=== PATIENT | male | born 1980 ===

== ENCOUNTER 2018-08-14 10:27 | Emergency (ER) | payer MEDICAID ==
[2018-08-14 10:33] VITALS: BP 146/97
[2018-08-14] MEDS ORDERED: IBUPROFEN PO ONE (11:23)
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
--- NOTE | 2018-08-14 11:59 | XRay Report ---
RIGHT HAND RADIOGRAPHS INDICATION: Blunt trauma with pain. COMPARISON: None similar at this institution. FINDINGS: AP, lateral and oblique right hand radiographs demonstrate a nondisplaced fifth metacarpal mid shaft fracture with slight dorsal angulation/apex and diffuse overlying soft tissue swelling. No joint involvement. Normal remainder exam. CONCLUSION: Acute right fifth metacarpal shaft fracture and overlying soft tissue swelling, as detailed above. Please correlate. Thank you for the opportunity to participate in this patient's care.
== END 2018-08-14 12:10 | disposition home or self-care (01) ==
LOC: ED 10:27
DX: S62.356A Nondisplaced fracture of shaft of fifth metacarpal bone, right hand, initial encounter for closed fracture (principal); F12.10 Cannabis abuse, uncomplicated; Y04.0XXA Assault by unarmed brawl or fight, initial encounter; Y93.89 Activity, other specified; Y92.89 Other specified places as the place of occurrence of the external cause; Y99.8 Other external cause status

== ENCOUNTER 2020-05-13 23:49 | Emergency (ER) | payer MEDICAID ==
[2020-05-14 01:21] VITALS: BP 133/87
[2020-05-14] MEDS ORDERED: methylPREDNISolone Sod Succinate 125 MG/2 ML INJ IM ONE (02:43)
[2020-05-14] MEDS ORDERED: FAMOTIDINE 20 MG TAB PO ONE (02:43)
[2020-05-14] MEDS ORDERED: KETOROLAC 60 MG/2 ML INJ IM ONE (02:43)
[2020-05-14] MEDS ORDERED: HYDROcodone/ACETAMINOPHEN 5-325 MG TAB PO ONE (02:43)
[2020-05-14] MEDS ORDERED: ONDANSETRON 4 MG ODT TAB PO ONE (02:44)
--- NOTE | 2020-05-14 03:10 | Emergency Department Report ---
ED Extremity Problem HPI - General Chief complaint: Extremity Injury, Lower Stated complaint: GOUT Source: patient Mode of arrival: Ambulatory Limitations: No Limitations - History of Present Illness Initial comments: Patient is a 39-year-old male with a history of chronic gouty arthropathy presents to the ED with complaint of acute onset persistent severe right first MTP joint pain with swelling and severe right great toe pain for the last 12 hours. Patient admits to having been drinking alcohol more frequently as well as eating seafood and red meat. Patient states that he has no medications for pain at home for his chronic gout. Patient denies fever, chills, traumatic injury, nausea, vomiting, chest pain, shortness of breath, heavy lifting, low back pain, numbness and tingling or weakness of right leg. MD Complaint: extremity pain (Right great toe pain and swelling), extremity swelling (Right great toe pain and swelling), joint swelling (Right great toe pain and swelling), joint paint (Right foot pain and swelling) -: Sudden, hour(s) (12) Location: lower extremity (Right great toe pain and right foot pain with swelling), toe (Right great toe pain and swelling) History of Same: Yes (Chronic gouty arthropathy) -: Yes arthralgia (Right great toe pain and right foot pain) Radiation: distal Severity scale (0 -10): 8 Quality: aching, sharp Consistency: constant Improves with: nothing Worsens with: weight bearing, walking, exertion, palpation Associated Symptoms: denies other symptoms, arthralgias (Right great toe pain under right foot pain). denies: chest pain, shortness of breath, fever, myalgias - Related Data Previous Rx's Medication Instructions Recorded Last Taken Type Ibuprofen [Motrin 800 MG tab] 800 mg PO Q8HR PRN #10 tablet 08/14/18 Unknown Rx traMADoL [Ultram] 50 mg PO Q6HR PRN #12 tablet 08/14/18 Unknown Rx Colchicine 0.6 mg PO Q8H PRN #30 tablet 05/14/20 Unknown Rx Indomethacin 50 mg PO Q8H PRN #30 capsule 05/14/20 Unknown Rx predniSONE [Deltasone] 60 mg PO DAILY #15 tablet 05/14/20 Unknown Rx traMADoL [Ultram] 50 mg PO Q6HR PRN #12 tablet 05/14/20 Unknown Rx Allergies Allergy/AdvReac Type Severity Reaction Status Date / Time No Known Allergies Allergy Unverified 08/14/18 10:28 ED Review of Systems ROS: Stated complaint: GOUT Other details as noted in HPI Constitutional: denies: chills, fever Eyes: denies: eye pain, eye discharge, vision change ENT: denies: ear pain, throat pain Respiratory: denies: cough, shortness of breath, wheezing Cardiovascular: denies: chest pain, palpitations Endocrine: no symptoms reported Gastrointestinal: denies: abdominal pain, nausea, diarrhea Genitourinary: denies: urgency, dysuria Musculoskeletal: joint swelling (Right great toe pain and swelling), arthralgia (Right great toe and). denies: back pain Skin: denies: rash, lesions Neurological: denies: headache, weakness, paresthesias Psychiatric: denies: anxiety, depression Hematological/Lymphatic: denies: easy bleeding, easy bruising ED Past Medical Hx - Past Medical History Previous Medical History?: Yes Hx Kidney Stones: Yes Additional medical history: GOUT, ULCER - Surgical History Past Surgical History?: Yes Additional Surgical History: LITHOTRIPSY/ ULCER BANNING - Social History Smoking Status: Never Smoker Substance Use Type: Marijuana - Medications Home Medications: Home Medications Medication Instructions Recorded Confirmed Last Taken Type Ibuprofen [Motrin 800 MG tab] 800 mg PO Q8HR PRN #10 tablet 08/14/18 Unknown Rx traMADoL [Ultram] 50 mg PO Q6HR PRN #12 tablet 08/14/18 Unknown Rx Colchicine 0.6 mg PO Q8H PRN #30 tablet 05/14/20 Unknown Rx Indomethacin 50 mg PO Q8H PRN #30 capsule 05/14/20 Unknown Rx predniSONE [Deltasone] 60 mg PO DAILY #15 tablet 05/14/20 Unknown Rx traMADoL [Ultram] 50 mg PO Q6HR PRN #12 tablet 05/14/20 Unknown Rx ED Physical Exam - General Limitations: No Limitations General appearance: alert, in no apparent distress - Head Head exam: Present: atraumatic, normocephalic, normal inspection - Eye Eye exam: Present: normal appearance, PERRL, EOMI Pupils: Present: normal accommodation - ENT ENT exam: Present: normal exam, normal orophraynx, mucous membranes moist, TM's normal bilaterally, normal external ear exam - Neck Neck exam: Present: normal inspection, full ROM - Respiratory Respiratory exam: Present: normal lung sounds bilaterally. Absent: respiratory distress, wheezes, rales, rhonchi, chest wall tenderness, accessory muscle use, decreased breath sounds, prolonged expiratory - Cardiovascular Cardiovascular Exam: Present: regular rate, normal rhythm, normal heart sounds. Absent: systolic murmur, diastolic murmur, rubs, gallop - GI/Abdominal GI/Abdominal exam: Present: soft, normal bowel sounds. Absent: tenderness, guarding, hyperactive bowel sounds - Extremities Exam Extremities exam: Present: normal inspection, full ROM, tenderness (Palpable ri ght great toe and right first MTP joint tenderness with mild swelling), normal capillary refill, joint swelling (Right great toe and right first MTP joint swelling). Absent: calf tenderness - Back Exam Back exam: Present: normal inspection, full ROM. Absent: tenderness, CVA tenderness (R), CVA tenderness (L), muscle spasm, paraspinal tenderness, vertebral tenderness - Neurological Exam Neurological exam: Present: alert, oriented X3, CN II-XII intact, normal gait, reflexes normal - Psychiatric Psychiatric exam: Present: normal affect, normal mood - Skin Skin exam: Present: warm, dry, intact, normal color. Absent: rash ED Course Vital Signs 05/14/20 05/14/20 05/14/20 01:14 03:38 03:39 Temperature 98.5 F Pulse Rate 81 Respiratory 18 20 20 Rate Blood Pressure 133/87 O2 Sat by Pulse 97 Oximetry ED Medical Decision Making - Medical Decision Making This is a 39-year-old male with a history of chronic gouty arthropathy presents to the ED with complaint of acute onset persistent severe right first MTP joint pain with swelling and severe right great toe pain for the last 12 hours. Patient admits to having been drinking alcohol more frequently as well as eating seafood and red meat. Patient states that he has no medications for pain at home for his chronic gout. In the ED, patient is alert and oriented x3 and is not in any distress but appears to be in significant pain. Patient was treated for pain in the ED and on reevaluation, patient is fully ambulatory in the ED and pain is well controlled medications. Patient was discharged home on pain medications and advised to follow-up with his primary care physician in 7 to 10 days for reevaluation or return to the ED immediately if symptoms get worse. - Differential Diagnosis Gout; osteoarthritis; muscle strain; tendinitis; chronic pain Critical care attestation.: If time is entered above; I have spent that time in minutes in the direct care of this critically ill patient, excluding procedure time. ED Disposition Clinical Impression: Acute gouty arthropathy, Acute pain of right foot, Pain of right great toe, Chronic osteoarthritis Disposition: TO HOME OR SELFCARE Is pt being admited?: No Does the pt Need Aspirin: No Condition: Stable Instructions: Low-Purine Eating Plan, Arthritis, [id number], Osteoarthritis Additional Instructions: Your symptoms are due to acute gouty arthropathy. Therefore take medications with food as needed for pain, drink plenty of fluids and follow-up with your primary care physician in 7 to 10 days for reevaluation. Return to the ED immediately if symptoms get worse. Prescriptions: Colchicine 0.6 mg PO Q8H PRN #30 tablet PRN Reason: Pain , Severe (7-10) predniSONE [Deltasone] 60 mg PO DAILY #15 tablet Indomethacin 50 mg PO Q8H PRN #30 capsule PRN Reason: Pain , Severe (7-10) traMADoL [Ultram] 50 mg PO Q6HR PRN #12 tablet PRN Reason: Pain Referrals: [facility] [Provider Group] - 7-10 days Time of Disposition: 03:08 Print Language: AFGHAN
== END 2020-05-14 04:00 | disposition left against medical advice (07) ==
LOC: ED 23:49
DX: M10.9 Gout, unspecified (principal); M19.071 Primary osteoarthritis, right ankle and foot; N20.0 Calculus of kidney; F12.10 Cannabis abuse, uncomplicated; Z79.899 Other long term (current) drug therapy
CPT/HCPCS: 96372; 99281; J1885; J2930; Q0162